=== PATIENT | male | born 1955 | race Caucasian/White ===

== ENCOUNTER → 2019-01-20 11:28 | Outpatient (CLI) | payer BC, SELFPAY ==
[2019-01-20 12:24] LABS: Anion Gap 11.4 mEq/L (5-15); Blood Urea Nitrogen 16 mg/dL (7-18); Calcium 9.1 mg/dL (8.5-10.1); Carbon Dioxide 28 mmol/L (21.0-32.0); Chloride 107 mmol/L (98-107); Creatinine,Serum 0.98 mg/dL (0.70-1.30); Estimated Glomerular Filt Rate 78 ml/min (>60); GFR (African American) 94 ML/MIN (>60); Glucose 103 mg/dL (74-106); Potassium 4.4 mmoL/L (3.5-5.1); Sodium 142 mmol/L (136-145)
[2019-01-20 12:59] LABS: Basophils # 0.1 K/mm3 (0-0.2); Basophils % 0.8 % (0.1-2.0); Eosinophils # 0.2 K/mm3 (0.0-0.4); Eosinophils % 2.4 % (0.1-12.0); Hemoglobin 16.4 g/dL (14.1-18.0); Lymphocytes # 2.6 K/mm3 (0.7-4.5); Lymphocytes % 37.3 % (10-50); Mean Corpuscular HGB Conc 33.5 g/dL (31.8-35.4); Mean Corpuscular Hemoglobin 30.8 pg (27.0-31.2); Mean Corpuscular Volume 92.1 fl (80-94); Mean Platelet Volume 8.5 fl (7.4-10.4); Monocytes # 0.6 K/mm3 (0.1-1.0); Monocytes % 8.2 % (1.7-9.3); Neutrophils # 3.6 K/mm3 (1.8-7.8); Neutrophils % 51.3 % (37.0-80.0); Platelet Count 204 K/mm3 (142-424); Red Blood Count 5.32 M/mm3 (4.60-6.20); Red Cell Distribution Width 13.6 % (11.5-17.5)
== END ==
PROVIDERS: Visit Provider Otolaryngology
DX: Z01.818 Encounter for other preprocedural examination (principal); L72.0 Epidermal cyst
CPT/HCPCS: 36415; 80048; 85025; 93005

== ENCOUNTER 2023-02-21 20:07 | Emergency (ER) | payer MEDICARE, SELFPAY ==
[2023-02-21 20:19] VITALS: BP 176/92; PULSE 102; RESP 18; TEMP 37.1; O2SAT 98; BMI 36.5
[2023-02-21 20:27] VITALS: BP 176/92; BP 192/96; PULSE 102; PULSE 94
--- NOTE | 2023-02-21 20:30 | CT_ITS ---
PROCEDURE INFORMATION: Exam: CT Abdomen And Pelvis With Contrast Exam date and time: 02/21/2023 8:51 PM Age: 67 years old Clinical indication: Other: Gi bleed TECHNIQUE: Imaging protocol: Computed tomography of the abdomen and pelvis with contrast. Radiation optimization: All CT scans at this facility use at least one of these dose optimization techniques: automated exposure control; mA and/or kV adjustment per patient size (includes targeted exams where dose is matched to clinical indication); or iterative reconstruction. Contrast material: ISOVUE; Contrast volume: 75 ml; Contrast route: IV; REPORTING DATA: Count of CT and Cardiac NM exams in prior 12 months: This patient has received 0 known CTs and 0 known cardiac nuclear medicine studies in the 12 months prior to the current study. COMPARISON: CR CXR2 CHEST-AP VIEW ONLY 02/15/2017 4:52 AM FINDINGS: Lungs: Calcified granuloma in the left lower lobe. Heart: Aortic valve leaflet calcifications which can be associated with aortic valve stenosis. Coronary arteries: Mild-moderate coronary artery calcifications. Liver: Unremarkable. Gallbladder and bile ducts: Unremarkable. Pancreas: Unremarkable. Spleen: Punctate calcified granuloma in the spleen. Adrenal glands: Unremarkable. Kidneys and ureters: Unremarkable. No hydronephrosis. Stomach and bowel: Sigmoid diverticulosis without evidence of acute diverticulitis. Appendix: No evidence of appendicitis. Intraperitoneal space: No free fluid. No pneumoperitoneum.. Vasculature: Mild atherosclerotic disease in the abdomen and pelvis. Lymph nodes: Unremarkable. Urinary bladder: Unremarkable as visualized. Reproductive: Unremarkable as visualized. Bones/joints: Intervertebral hemangioma at L1. Chronic morphology multilevel height loss in the thoracolumbar spine. No acute fracture. Soft tissues: Unremarkable. IMPRESSION: 1. No acute findings in the abdomen and pelvis. 2. Sigmoid diverticulosis without evidence of acute diverticulitis.
[2023-02-21 20:37] LABS: Basophils % 0.4 % (0.1-2.0); Eosinophils # 0.1 K/mm3 (0.0-0.4); Eosinophils % 1.5 % (0.1-12.0); Hematocrit 40.6 % (42.0-52.0); Hemoglobin 13.6 g/dL (14.1-18.0); Lymphocytes # 2.8 K/mm3 (0.7-4.5); Lymphocytes % 31.1 % (10-50); Mean Corpuscular HGB Conc 33.5 g/dL (31.8-35.4); Mean Corpuscular Hemoglobin 31.2 pg (27.0-31.2); Mean Platelet Volume 9.2 fl (7.4-10.4); Monocytes # 0.5 K/mm3 (0.1-1.0); Monocytes % 5.6 % (1.7-9.3); Neutrophils # 5.6 K/mm3 (1.8-7.8); Neutrophils % 61.5 % (37.0-80.0); Platelet Count 230 K/mm3 (142-424); Red Blood Count 4.36 M/mm3 (4.60-6.20); Red Cell Distribution Width 14.1 % (11.5-17.5); White Blood Count 9.1 K/mm3 (4.8-10.8)
[2023-02-21 20:38] LABS: Chloride 103 mmol/L (98-107); Potassium 4.2 mmoL/L (3.5-5.1); Sodium 137 mmol/L (136-145)
[2023-02-21 20:40] VITALS: BP 161/97; PULSE 89; RESP 16; O2SAT 98
--- NOTE | 2023-02-21 20:40 | HMH.EDGIBL ---
Discharge Plan Disposition Patient Disposition: Home, Self-Care Chief Complaint: GI Bleed Prescriptions Prescriptions: No Action amlodipine 5 mg tablet 5 mg PO DAILY levothyroxine 75 mcg capsule 75 mcg PO DAILY omeprazole 40 mg capsule,delayed release(DR/EC) 40 mg PO DAILY Referrals Follow up/Referrals: Carlos Sharp MD [Primary Care Provider] - See instructions Clinical Impressions Clinical Impression: Acute GI bleeding, Syncope Instructions Patient Instructions: DI for Gastrointestinal Bleeding Discharge ED Provider: Angelito (ED)Rad GI Bleed HPI General Chief complaint: GI Bleed Stated complaint: pOSSIBLE GI BLEED Time Seen by Provider: 02/21/23 20:35 Mode of Arrival: Family Vehicle Source of Information: Patient, Spouse and Medical Record Limitations: No Limitations Description of Symptoms (Recalled from ER Triage Doc. by RN): 67 YO MALE CC OF RECTAL BLEEDING . PATIENT REVEALS HE HAS HAD 4-5 TARRY BLACK STOOLS OF SOFT CONSISTENCY THROUGHOUT DAY TODAY,AND 'MADE HIM COME' FOLLOWING A SYNCOPAL EPISODE AT HOME. PT STATES HE HAD WALKED INTO THE KITCHEN, FELT WEAK IN THE LEGS AND IMMEDIATEDLY 'COLLAPSED' DOWN ONTO HIS BUTTOCKS. REPORTS THIS WAS WITNESSED AND HE DIDN'T HIT HIS HEAD. LOC LASTED APPROX 2-3 SECONDS. DENIES ANY INJURY FROM SYNCOPAL EPISODE. FURTHER STATES HE HAS BEEN LIGHTHEADED INTERMITTENTLY. PATIENT IS ALERT, VERBALLY RESPONSIVE WITH CLEAR SPEECH AND NO HISTORY OF SEIZURE ACTIVITY. PMH: HTN,HYPOTHYROID, AND GERD ASSOCIATED ULCERS. DENIES ANTICOAGULANTS/ANTIPLATELET USE. RECENTLY WAS SEEN BY DR SHARP AND HAD BLOOD WORK COMPLETED. SOCIALLY DRINKS ON WEEKENDS, HOWEVER FORMER ETOH HISTORY INCLUDED DAILY DRINKING FOR APPROX 20 YEARS. DENIES TOBACCO/RECR DRUG USE. History of Present Illness HPI Narrative: dark rectal bleeding which started today and had acute syncopal episode assoc with tonight no abd pain complaint: melena Onset (ago): hour(s) Consistency: intermittent Severity: moderate Context: history of GI bleed Associated symptoms: syncope Treatments Prior to Arrival: none Related Data Home Medications Medication Instructions Recorded Confirmed amlodipine 5 mg tablet 5 mg PO DAILY Hypertension 01/20/19 02/21/23 levothyroxine 75 mcg capsule 75 mcg PO DAILY High blood pressure 01/20/19 02/21/23 omeprazole 40 mg capsule,delayed 40 mg PO DAILY reflux 01/20/19 02/21/23 release Allergies Allergy/AdvReac Type Severity Reaction Status Date / Time No Known Allergies Allergy Verified 09/22/19 13:55 [facility] Disclaimer: The information contained in this section may have been updated after the patient was seen, as this information can be updated by other users. Social History Smoking Status: Never smoker alcohol intake: never substance use type: denies use current occupational status: employed Travel in the last 8 weeks: None household members: significant other housing: house current occupation: [employer] current occupational exposures/hazards: No caffeine: Yes ROS Obtained: Yes All systems reviewed & no additional complaints except as documented Physical Exam General General appearance: alert Head Head exam: normocephalic Eye Eye exam: Present PERRL and EOMI; Absent scleral icterus ENT ENT exam: Present mucous membranes moist Neck Neck exam: Present trachea midline Respiratory Respiratory exam: Absent respiratory distress Cardiovascular Cardiovascular exam: Present regular rate and systolic murmur Abdominal Exam Abdominal exam: Present soft; Absent tenderness, guarding or rebound Rectal Exam Rectal exam: Present heme (+) stool and prostate enlargement Extremities Exam Extremities exam: Present full ROM Neurological Exam Neurological exam: Present alert and CN II-XII intact; Absent motor sensory deficit Psychiatric Psychiatric exam: Present normal affect Skin Skin exam: Absent rash Medical Decision Shaji
[2023-02-21 20:41] LABS: Alanine Aminotransferase 24 U/L (12-78); Amylase 59 U/L (30-110); Anion Gap 11.2 mEq/L (5-15); Aspartate Amino Transferase 26 U/L (17-59); Bilirubin,Unconjugated 0.3 mg/dL (0.0-1.1); Blood Urea Nitrogen 26 mg/dl (9-20); Calcium 8.7 mg/dl (8.4-10.2); Carbon Dioxide 27 mmol/L (22.0-30.0); Creatinine Clearance Estimated 113 mL/min (50-200); Estimated Glomerular Filt Rate 85 ml/min (>60); GFR (African American) 102 ML/MIN (>60); Glucose 123 mg/dl (74-100)
[2023-02-21 20:42] LABS: Alkaline Phosphatase 75 U/L (38-126); Bilirubin,Direct 0.1 mg/dl (0.0-0.4); Bilirubin,Indirect 0.3 mg/dL (0.0-0.9); Bilirubin,Total 0.4 mg/dl (0.2-1.3); Lipase 64 U/L (23-300); Total Protein,Serum 6.6 g/dl (6.3-8.2)
[2023-02-21 20:42] LABS: Occult Blood,Stool Positive (Negative)
[2023-02-21 20:44] LABS: Activated Partial Thrombo Time 30.4 seconds (22.8-30.6); INR 0.98 (0.9-1.1); Prothrombin Time 10.6 seconds (10.1-12.5)
[2023-02-21 20:48] LABS: C-Reactive Protein 3.6 mg/L (0-4)
[2023-02-21 21:05] LABS: Erythrocyte Sedimentation Rate 12 mm/hr (0-20)
[2023-02-21 21:06] VITALS: BP 164/86; PULSE 90; O2SAT 99
[2023-02-21 21:30] VITALS: BP 154/86; PULSE 89; O2SAT 98
--- NOTE | 2023-02-21 22:00 | PC.NURSE ---
PATIENT HOOKED UP FOR VITAL SIGNS, CALL LIGHT WITHIN REACH, SPOUSE AT BEDSIDE
[2023-02-21 23:03] VITALS: BP 168/97; PULSE 78; RESP 19; TEMP 36.7; O2SAT 98
== END 2023-02-21 23:15 | disposition home or self-care (01) ==
PROVIDERS: Emergency Provider Emergency Medicine; PCP Family Medicine
DX: K92.2 Gastrointestinal hemorrhage, unspecified (principal); R55 Syncope and collapse
CPT/HCPCS: 74177; 80048; 80076; 82150; 82272; 83690; 85025; 85610; 85651; 85730; 86140; 96360; 99284; 99285; G0328; Q9967

== ENCOUNTER 2023-02-23 08:02 | Observation (INO) | payer MEDICARE, SELFPAY ==
[2023-02-23] VITALS (24 sets, daily range): BP systolic 103–150; BP diastolic 53–97; PULSE 72–95; RESP 14–19; TEMP 36.4–36.9; O2SAT 93–100; BMI 35.7; BMI 37.2
[2023-02-23 08:22] LABS: Basophils % 0.4 % (0.1-2.0); Eosinophils # 0.1 K/mm3 (0.0-0.4); Eosinophils % 1.7 % (0.1-12.0); Hematocrit 27.6 % (42.0-52.0); Hemoglobin 9.3 g/dL (14.1-18.0); Lymphocytes # 2.9 K/mm3 (0.7-4.5); Lymphocytes % 38.1 % (10-50); Mean Corpuscular HGB Conc 33.8 g/dL (31.8-35.4); Mean Corpuscular Hemoglobin 32.1 pg (27.0-31.2); Mean Corpuscular Volume 95.1 fl (80-94); Mean Platelet Volume 9.3 fl (7.4-10.4); Monocytes # 0.3 K/mm3 (0.1-1.0); Monocytes % 4.5 % (1.7-9.3); Neutrophils # 4.2 K/mm3 (1.8-7.8); Neutrophils % 55.3 % (37.0-80.0); Platelet Count 221 K/mm3 (142-424); Red Blood Count 2.91 M/mm3 (4.60-6.20); Red Cell Distribution Width 14.3 % (11.5-17.5); White Blood Count 7.7 K/mm3 (4.8-10.8)
--- NOTE | 2023-02-23 08:26 | PC.NURSE ---
calling dr wilkins office to speak to carlos a caruso
--- NOTE | 2023-02-23 08:29 | ECG_ITS ---
APPROVED REPORT Exam: Resting ECG HR:77 bpm ECG Measurements Heart Rate 77 AXES KS 178 P 13 QRSd 126 QRS 16 QT 410 T 33 QTc 441 Conclusion SINUS RHYTHM POSSIBLE RIGHT VENTRICULAR CONDUCTION DELAY [RSR (QR) IN V1/V2] PROBABLE LATERAL MYOCARDIAL INFARCTION , PROBABLY OLD [35 ms Q WAVE IN I/aVL/V5/V6] ABNORMAL ECG UNCONFIRMED REPORT Electronically signed by : Magan Mckeon MD 02/23/2023 19:36:45
--- NOTE | 2023-02-23 08:31 | PC.NURSE ---
Jamari Rm speaking with dr rojas
--- NOTE | 2023-02-23 08:32 | PC.NURSE ---
ROSANNE TAYLOR speaking with Dr. Sharp
--- NOTE | 2023-02-23 08:40 | PC.NURSE ---
pt given additional warm blanket, family at BS, states no additional needs at this time
[2023-02-23 08:42] LABS: Chloride 105 mmol/L (98-107); Potassium 3.7 mmoL/L (3.5-5.1); Sodium 136 mmol/L (136-145)
[2023-02-23 08:45] LABS: Alanine Aminotransferase 28 U/L (12-78); Albumin Level 3.1 g/dl (3.5-5.0); Albumin/Globulin Ratio 1.3 (1.1-1.8); Alkaline Phosphatase 59 U/L (38-126); Anion Gap 9.7 mEq/L (5-15); Aspartate Amino Transferase 31 U/L (17-59); Bilirubin,Total 0.5 mg/dl (0.2-1.3); Blood Urea Nitrogen 27 mg/dl (9-20); Calcium 8.1 mg/dl (8.4-10.2); Carbon Dioxide 25 mmol/L (22.0-30.0); Creatinine Clearance Estimated 111 mL/min (50-200); Estimated Glomerular Filt Rate 75 ml/min (>60); GFR (African American) 91 ML/MIN (>60); Globulin 2.3 g/dL (1.3-3.2); Glucose 169 mg/dl (74-100); Total Protein,Serum 5.4 g/dl (6.3-8.2)
--- NOTE | 2023-02-23 08:46 | PC.NURSE ---
notified care management of admission
--- NOTE | 2023-02-23 08:47 | HMH.EDGENADL ---
Discharge Plan Disposition Patient Disposition: Admitted As Inpatient Chief Complaint: GI Bleed Prescriptions Prescriptions: No Action amlodipine 5 mg tablet 5 mg PO DAILY levothyroxine 75 mcg capsule 75 mcg PO DAILY omeprazole 40 mg capsule,delayed release(DR/EC) 40 mg PO DAILY Referrals Follow up/Referrals: Carlos Sharp MD [Primary Care Provider] - See instructions Clinical Impressions Clinical Impression: Syncope, Acute GI bleeding Instructions Patient Instructions: DI for Gastrointestinal Bleeding Discharge ED Provider: Stuart Palm General Adult HPI General Chief complaint: GI Bleed Stated complaint: Gi Bleed Time Seen by Provider: 02/23/23 08:05 Mode of Arrival: EMS Source of Information: Patient Limitations: No Limitations Description of Symptoms (Recalled from ER Triage Doc. by RN): pt to ed via ems c/o rectal bleeding. pt states he was seen wednesday evening for the same complaint and was d/c home to see dr borden this morning. pt states he got up to use the bathroom this morning, had significant blood loss and had a syncopal episode. pt c/o generalized weakness. History of Present Illness HPI narrative: 67-year-old male presents with rectal bleeding. He was evaluated a few days ago for the same complaint and had a hemoglobin of 13 at that time was set up to see Dr. Borden this morning. This morning he woke up to use the bathroom and had bleeding per rectum and passed out as well. He has no abdominal pain or chest pain headache. No fever or chills he does not take blood thinners. Bleeding was bright red. Related Data Home Medications Medication Instructions Recorded Confirmed amlodipine 5 mg tablet 5 mg PO DAILY Hypertension 01/20/19 02/21/23 levothyroxine 75 mcg capsule 75 mcg PO DAILY High blood pressure 01/20/19 02/21/23 omeprazole 40 mg capsule,delayed 40 mg PO DAILY reflux 01/20/19 02/21/23 release Allergies Allergy/AdvReac Type Severity Reaction Status Date / Time No Known Allergies Allergy Verified 09/22/19 13:[address] [facility] Disclaimer: The information contained in this section may have been updated after the patient was seen, as this information can be updated by other users. Social History Smoking Status: Never smoker alcohol intake: never substance use type: denies use current occupational status: employed Travel in the last 8 weeks: None household members: significant other housing: house current occupation: [employer] current occupational exposures/hazards: No caffeine: Yes ROS Obtained: Yes All systems reviewed & no additional complaints except as documented Constitutional Constitutional: Reports fatigue ENT Ears, Nose, Mouth, and Throat: Denies dry mouth Cardiovascular Cardiovascular: Denies dyspnea Respiratory Respiratory: Denies dyspnea Genitourinary Male Genitourinary: Denies flank pain Musculoskeletal Musculoskeletal: Denies joint swelling Neurologic Neurologic: Denies confusion Endocrine Endocrine: Reports fatigue Allergic/Immunologic Allergic/Immunologic: Denies urticaria Physical Exam General General appearance: alert and in no apparent distress Eye Eye exam: Present PERRL and EOMI ENT ENT exam: Present normal exam and normal oropharynx Neck Neck exam: Present normal inspection Chest Chest inspection: Present symmetric chest wall rise Respiratory Respiratory exam: Present normal lung sounds bilaterally; Absent respiratory distress Cardiovascular Cardiovascular exam: Present regular rate and normal rhythm Abdominal Exam Abdominal exam: Present soft; Absent distention, tenderness, guarding, rebound, Short's sign or tenderness at McBur[place]'s Point Rectal Exam Rectal exam: Present deferred Back Exam Back exam: Present normal inspection Neurological Exam Neurological exam: Present alert and oriented X3 Psychiatric Psychiatric exam: Present normal affect and normal mood Skin Skin exam: Present warm,
[2023-02-23 08:48] LABS: Coronavirus 19, PCR Not Detected (NotDetected); Influenza A, PCR Not Detected (NotDetected); Influenza B, PCR Not Detected (NotDetected)
--- NOTE | 2023-02-23 08:52 | EXP.SURG.CON ---
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 I had performed colonoscopy on him in 2015 and he had a couple of tubular adenomas. Follow-up colonoscopy in October 2019 revealed a single tubular adenoma and several hyperplastic polyps as well as some pandiverticulosis. He was seen in the emergency department on 02/21/2023 with complaints of passage of several tarry black stools along with a reported syncopal episode. At that time he was found to have a BUN of 26 with a creatinine of 0.9. Hemoglobin of 13.6. CT scan of the abdomen pelvis at that time with IV contrast revealed no acute findings with sigmoid diverticulosis without diverticulitis. Patient was discharged to follow-up as an outpatient with surgery. He presents back to the emergency department this morning via EMS with complaints of rectal bleeding . He had some blood loss described as black stool with a bit of fresher looking blood and had a syncopal episode. Hemoglobin is 9.3 with hematocrit of 27.6%. His BUN is 27 with a creatinine of 1.0 PFSH [facility] Disclaimer: The information contained in this section may have been updated after the patient was seen, as this information can be updated by other users. Medical History (Updated 02/23/23 @ 10:55 by Mary Walton RN) Abnormal colonoscopy Abnormal colonoscopy Colon polyps Esophageal anastomotic leak GERD (gastroesophageal reflux disease) GI bleed Thyroid disease Tinnitus Family History Coronary artery disease Cancer Hypertension Social History (Updated 02/23/23 @ 10:57 by Mary Walton RN) Smoking Status: Never smoker alcohol intake: current substance use type: denies use current occupational status: employed and retired Travel in the last 8 weeks: [place] the [place] household members: significant other housing: house current occupation: [employer] current occupational exposures/hazards: No caffeine: Yes Review of Systems *Neurologic Neurologic: Denies confusion Psychiatric Psychiatric: Denies confusion Meds Home Medications and Allergies Home Medications Medication Instructions Recorded Confirmed Type amlodipine 5 mg tablet 5 mg PO DAILY High blood pressure 01/20/19 02/23/23 History levothyroxine 75 mcg capsule 75 mcg PO DAILY Thyroid 01/20/19 02/23/23 History omeprazole 40 mg capsule,delayed 40 mg PO DAILY Acid reflux 01/20/19 02/23/23 History release multivitamin 1 tab PO DAILY Supplement 02/23/23 02/23/23 History New Prescriptions to Start Prescriptions: Allergies Allergy/AdvReac Type Severity Reaction Status Date / Time No Known Allergies Allergy Verified 09/22/19 13:55 Exam (Inpt) Vital signs and Labs for Last 24 Hours: Temp Pulse Resp BP Pulse Ox 98.3 F 76 14 124/92 H 100 02/23/23 08:05 02/23/23 08:31 02/23/23 08:07 02/23/23 08:31 02/23/23 08:31 Laboratory Results - last 24 hr 02/23/23 08:06: WBC 7.7, RBC 2.91 L D, Hgb 9.3 L, Hct 27.6 L, MCV 95.1 H, MCH 32.1 H, MCHC 33.8, RDW 14.3, Plt Count 221, MPV 9.3, Neut % (Auto) 55.3, Lymph % (Auto) 38.1, [place] % (Auto) 4.5, Eos % (Auto) 1.7, Baso % (Auto) 0.4, Neut # (Auto) 4.2, Lymph # (Auto) 2.9, [place] # (Auto) 0.3, Eos # (Auto) 0.1, Baso # (Auto) 0.0 02/23/23 08:06: Sodium 136, Potassium 3.7, Chloride 105, Carbon Dioxide 25, Anion Gap 9.7, BUN 27 H, Creatinine 1.00, Estimated Creat Clear 111, Estimated GFR 75, Est GFR ( Amer) 91, Glucose 169 H, Calcium 8.1 L, Total Bilirubin 0.5, AST 31, ALT 28, Alkaline Phosphatase 59, Total Protein 5.4 L, Albumin 3.1 L D, Globulin 2.3, Albumin/Globulin Ratio 1.3 I & O for Labs for Last 24 Hours: Intake & Output 02/20/23 02/21/23 02/22/23 02/23/23 11:59 11:59 11:59 11:59 Weight 235 lb C
--- NOTE | 2023-02-23 09:00 | PC.NURSE ---
dr okeefe speaking to carlos a caruso
--- NOTE | 2023-02-23 09:04 | PC.NURSE ---
dena yanezn at BS
--- NOTE | 2023-02-23 09:08 | PC.NURSE ---
Addendum entered by Vielka Campos RN 02/23/23 12:07: Elaine lopez RN* Original Note: report called to elaine molina rn
--- NOTE | 2023-02-23 09:08 | PC.NURSE ---
nereida bone @ bs
[2023-02-23 09:18] LABS: Troponin I < 0.01 ng/ml (0.00-0.034)
--- NOTE | 2023-02-23 09:21 | EXP.HP ---
History of Present Illness *Admission Date: 02/23/23 *History of present illness: Mr. Hernando Villagomez is a 67-year-old male with a history of hypertension, hypothyroidism, colon polyps, previous GI bleed in 2017, and hyperlipidemia, who presented to [facility] emergency room via EMS after rectal bleeding on the commode and syncopal episode This a.m. Significant other is with him and states he was in and out Of consciousness after falling off the commode and until EMS arrived. He describes black stools for the last 3 to 4 days and was actually seen in the emergency room with evaluation 2 days ago. At that time hemoglobin was [address] of the abdomen/pelvis was unremarkable. He has been eating and drinking as usual. He denies any abdominal pain, nausea, or vomiting. He does not take aspirin and states that he has not been taking NSAIDs. He does not use tobacco. He does drink beer on an irregular basis anywhere from 6-8 beers at a time. He was evaluated in the emergency room and will be admitted with consultation with surgeon, Dr. Borden. At this time he is feeling better but when sitting up for chest assessment he became dizzy. He continues to deny abdominal pain, nausea, and no vomiting. He has not had a stool since arrival to the ER. 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 I had performed colonoscopy on him in 2015 and he had a couple of tubular adenomas. Follow-up colonoscopy in October 2019 revealed a single tubular adenoma and several hyperplastic polyps as well as some pandiverticulosis. He was seen in the emergency department on 02/21/2023 with complaints of passage of several tarry black stools along with a reported syncopal episode. At that time he was found to have a BUN of 26 with a creatinine of 0.9. Hemoglobin of 13.6. CT scan of the abdomen pelvis at that time with IV contrast revealed no acute findings with sigmoid diverticulosis without diverticulitis. Patient was discharged to follow-up as an outpatient with surgery. He presents back to the emergency department this morning via EMS with complaints of rectal bleeding . He had some blood loss and had a syncopal episode. He describes appearance of blood as fresh red. Hemoglobin is 9.3 with hematocrit of 27.6%. His BUN is 27 with a creatinine of 1.0 The above as per Dr. Borden [facility] Disclaimer: The information contained in this section may have been updated after the patient was seen, as this information can be updated by other users. Medical History (Updated 02/23/23 @ 10:55 by Mary Walton RN) Abnormal colonoscopy Abnormal colonoscopy Colon polyps Esophageal anastomotic leak GERD (gastroesophageal reflux disease) GI bleed Thyroid disease Tinnitus Family History Coronary artery disease Cancer Hypertension Social History (Updated 02/23/23 @ 10:57 by Mary Walton RN) Smoking Status: Never smoker alcohol intake: current substance use type: denies use current occupational status: employed and retired Travel in the last 8 weeks: [place] the [place] household members: significant other housing: house current occupation: [employer] current occupational exposures/hazards: No caffeine: Yes Review of Systems Constitutional Constitutional: Denies fever(s) and Denies frequent falls Eyes Eyes: Reports spots in vision ENT Ears, Nose, Mouth, and Throat: Reports dizziness, Denies otalgia and Denies sore throat *Cardiovascular Cardiovascular: Reports dyspnea, Denies irregular heart rhythm, Denies leg edema, Denies palpitations and Reports syncope *Respiratory Respiratory: Denies chest congestion, Denies cough, Reports dyspnea and Denies hemoptysis *Gastrointestinal Gastrointestinal: Denies abdominal pain, Reports change in bowel habits, Reports change in stool character, Denies coffe
--- NOTE | 2023-02-23 09:27 | PC.NURSE ---
attempted to call report, receiving nurse unavailable, waiting on a call back
--- NOTE | 2023-02-23 09:40 | PC.NURSE ---
notified second floor staff pt covid swab is negative
--- NOTE | 2023-02-23 10:01 | PC.NURSE ---
deyanira montejoing on pt
--- NOTE | 2023-02-23 11:18 | HMH.PHAINT1 ---
Pharmacy Intervention Comments: Reconciled patient's home medications using patient interview.
--- NOTE | 2023-02-23 12:13 | EXP.ANES.CKL ---
[facility] Disclaimer: The information contained in this section may have been updated after the patient was seen, as this information can be updated by other users. Medical History (Updated 02/23/23 @ 10:55 by Mary Walton RN) Abnormal colonoscopy Abnormal colonoscopy Colon polyps Esophageal anastomotic leak GERD (gastroesophageal reflux disease) GI bleed Thyroid disease Tinnitus Family History Other Cancer Coronary artery disease Hypertension Social History (Updated 02/23/23 @ 10:57 by Mary Walton RN) Smoking Status: Never smoker alcohol intake: current substance use type: denies use current occupational status: employed and retired Travel in the last 8 weeks: [place] the [place] household members: significant other housing: house current occupation: [employer] current occupational exposures/hazards: No caffeine: Yes [facility] Anesthesia Checklist Patient Identification Patient Identification: Arm Band and Verbal (Name & ) Structural Data Admitted From: Inpatient Planned Operative Procedure/s: EGD Consent for Planned Operative Procedure(s) Verified: Yes Verified Documents: Surgical Consent NPO Status Verified Time NPO: 00:00 Chart Verification Results Verified: CBC and BMP Additional verifications Anesthesia Reactions: No Hx Blood Transfusions: No Blood Transfusion Reaction: No Airway Assessment C-Spine Mobility Assessed: Yes TMJ Mobility Assessed: Yes Dentition: Good Dentition Neurological Assessment Level of Consciousness: Awake, Alert and Appropriate Anesthesia Plan Anesthesia Risk discussed: Yes ASA Class: II Anesthesia Type: MAC
[2023-02-23 12:16] LABS: Troponin I < 0.01 ng/ml (0.00-0.034)
--- NOTE | 2023-02-23 12:30 | P.PCN_ITS ---
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 I had performed colonoscopy on him in 2015 and he had a couple of tubular adenomas.? Follow-up colonoscopy in October 2019 revealed a single tubular adenoma and several hyperplastic polyps as well as some pandiverticulosis.? He was seen in the emergency department on 02/21/2023 with complaints of passage of several tarry black stools along with a reported syncopal episode.? At that time he was found to have a BUN of 26 with a creatinine of 0.9.? Hemoglobin of 13.6.? CT scan of the abdomen pelvis at that time with IV contrast revealed no acute findings with sigmoid diverticulosis without diverticulitis.? Patient was discharged to follow-up as an outpatient with surgery.? He presents back to the emergency department this morning via EMS with complaints of rectal bleeding .? He had some blood loss described as black stool with a bit of fresher looking blood and had a syncopal episode.? Hemoglobin is 9.3 with hematocrit of 27.6%.? His BUN is 27 with a creatinine of 1.0. He is on omeprazole. Performing Provider:: Onur Borden MD Referring Provider:: Carlos Sharp MD Sedation:: MAC sedation Procedure:: Patient was taken to endoscopy procedure room. He was positioned in lateral decubitus position. Adequate intravenous sedation was achieved with anesthesia titration of propofol. Olympus endoscope was inserted via the oropharynx. Esophagus was cannulated. Esophagus appeared normal. Gastroesophageal junction was encountered at 40 cm from the incisors. Stomach was cannulated and insufflated. Retroflexion revealed no evidence of any hiatal hernia. There was some minor diffuse gastropathy. Pylorus was traversed. Within the duodenum there was some minor duodenitis. This was carefully inspected. There was no evidence of any recent stigmata of bleeding. The endoscope was advanced a generous distance into the duodenum. There appeared to be no evidence of any recent bleeding. The endoscope was withdrawn. Findings:: Gastroesophageal junction at 40 cm Minor diffuse gastropathy Nonerosive duodenitis No evidence of upper GI bleeding or stigmata of recent bleeding Recommendations:: Unclear as to the etiology of the patient's blood loss. No clear source identified during this endoscopy for upper GI etiology. Given the clinical s cenario nature of the patient's symptoms unlikely colon source. Would not pursue colonoscopy immediately as inpatient. Continue to monitor hemoglobin for stability and transfuse as necessary. Likely tentatively plan for small bowel evaluation beginning with small bowel follow-through. Complications:: None immediately apparent Estimated blood obtained (mL): 0
--- NOTE | 2023-02-23 12:39 | CT_ITS ---
FINAL REPORT TECHNIQUE: Axial CT images were obtained from the lung bases to the pubic symphysis before and following IV contrast administration in multiple phases. Reformatted images were reconstructed from the axial dataset provided for interpretation.This study was performed with techniques to keep radiation doses as low as reasonably achievable (ALARA). Individualized dose reduction techniques using automated exposure control or adjustment of mA and/or kV according to the patient's size were employed. CLINICAL HISTORY: GI BLOOD LOSS COMPARISON: CT abdomen and pelvis dated 02/22/2023 FINDINGS: CTA ABDOMEN AND PELVIS Motion on many of the images significantly decreases the sensitivity of the exam. LOWER CHEST: The heart is normal in size. The lung bases are clear. ABDOMEN: Liver, gallbladder and bile ducts: The liver enhances homogeneously without suspicious focal hepatic lesion.. Unremarkable gallbladder. No biliary ductal dilatation. Adrenal glands: The adrenal glands are morphologically unremarkable without suspicious lesion. Kidneys, ureters, prostate: No suspicious renal stones. No nephrolithiasis. No hydronephrosis. The prostate is enlarged. Spleen: The spleen is normal in size. Pancreas: The pancreas is unremarkable. Gastrointestinal system and mesentery: There is no evidence of bowel obstruction. There is sigmoid diverticulosis. The appendix is visualized and unremarkable. There is no significant mesenteric inflammation. Lymph nodes: No pathologically enlarged abdominal lymph nodes are present. Vessels: There is no evidence of abdominal aortic aneurysm or dissection. Moderate vascular calcifications are noted. There is mild stenosis in the proximal celiac axis and superior mesenteric artery of less than 50%. There is mild, less than 50% stenosis of the proximal right renal artery. The MANUELA is patent. There is no CT evidence of acute GI hemorrhage. Peritoneum: No free intraperitoneal fluid or pneumoperitoneum. Body wall: No body wall contusion. There is a small left inguinal hernia containing fat. Bones: Multilevel chronic thoracic and lumbar compression fractures. IMPRESSION: No CT evidence of acute GI hemorrhage. Mild, less than 50% stenosis of the proximal celiac axis and SMA. Mild, less than 50% stenosis of the right renal artery. Reviewed, Interpreted and Dictated by Onur Desai III, MD Transcribed by Virginia Adair Authenticated and [facility]
--- NOTE | 2023-02-23 12:47 | SUR.PHASEII ---
CALLED REPORT TO DAISY DOWNS RN
[2023-02-23 15:19] LABS: Troponin I 0.01 ng/ml (0.00-0.034)
[2023-02-23 16:17] LABS: Occult Blood,Stool Positive (Negative)
--- NOTE | 2023-02-23 17:55 | PC.NURSE ---
Pt is resting in bed. No complaints of discomfort at this time. Pt had one small loose stool. Specimen sent. VSS at this time. Tolerated clear diet. call light within reach.
[2023-02-24] VITALS (10 sets, daily range): BP systolic 117–160; BP diastolic 52–91; PULSE 63–91; RESP 18; TEMP 36.6–36.9; O2SAT 92–98; BMI 36.1
--- NOTE | 2023-02-24 05:34 | PC.NURSE ---
NO ACUTE CHANGES SINCE PREVIOUS ASSESSMENT. PT RESTED WELL. NO C/O ABD PAIN OR BLOODY STOOLS. NO C/O NAUSEA OR VOMITING. VSS. NSR ON TELE.
[2023-02-24 06:20] LABS: Basophils % 0.5 % (0.1-2.0); Eosinophils # 0.2 K/mm3 (0.0-0.4); Eosinophils % 1.9 % (0.1-12.0); Hematocrit 25.2 % (42.0-52.0); Hemoglobin 8.6 g/dL (14.1-18.0); Lymphocytes # 2.3 K/mm3 (0.7-4.5); Lymphocytes % 25.8 % (10-50); Mean Corpuscular HGB Conc 34.1 g/dL (31.8-35.4); Mean Corpuscular Hemoglobin 32.9 pg (27.0-31.2); Mean Corpuscular Volume 96.4 fl (80-94); Mean Platelet Volume 8.6 fl (7.4-10.4); Monocytes # 0.6 K/mm3 (0.1-1.0); Monocytes % 6.2 % (1.7-9.3); Neutrophils # 5.8 K/mm3 (1.8-7.8); Neutrophils % 65.6 % (37.0-80.0); Platelet Count 214 K/mm3 (142-424); Red Blood Count 2.61 M/mm3 (4.60-6.20); Red Cell Distribution Width 14.9 % (11.5-17.5); White Blood Count 8.8 K/mm3 (4.8-10.8)
--- NOTE | 2023-02-24 06:23 | FL_ITS ---
FINAL REPORT CLINICAL HISTORY: gi bleed FINDINGS: UPPER GI WITH SBFT HISTORY: Anemia. PROCEDURE: The patient ingested barium. Spot and overhead films were obtained. Additional barium was administered for a SBFT. FINDINGS: The esophagus is normal. There is no hiatal hernia. There is moderate gastroesophageal reflux. Peristalsis is normal. The rugal fold pattern of the stomach is normal. There are prominent duodenal folds which may represent duodenitis. FLUOROSCOPY TIME: 1 minute IMPRESSION: 1. Moderate esophageal reflux. 2. Prominent duodenal folds may represent duodenitis. SBFT: The cell installer film is normal. There is no evidence of obstruction. The mucosal fold pattern is normal. The terminal ilium is normal. IMPRESSION: Normal SBFT. Films reviewed , interpreted and dictated by Dr. Desai Transcribed by Stephan Smith PA-C. Reviewed, Interpreted and Dictated by Onur Desai III, MD Transcribed by MIKAELA Sultana Authenticated and [facility]
[2023-02-24 06:32] LABS: Chloride 108 mmol/L (98-107)
[2023-02-24 06:33] LABS: Potassium 3.8 mmoL/L (3.5-5.1); Sodium 138 mmol/L (136-145)
[2023-02-24 06:35] LABS: Blood Urea Nitrogen 18 mg/dl (9-20); Creatinine Clearance Estimated 113 mL/min (50-200); Estimated Glomerular Filt Rate 85 ml/min (>60); GFR (African American) 102 ML/MIN (>60)
[2023-02-24 06:36] LABS: Anion Gap 7.8 mEq/L (5-15); Calcium 7.9 mg/dl (8.4-10.2); Carbon Dioxide 26 mmol/L (22.0-30.0); Glucose 96 mg/dl (74-100)
--- NOTE | 2023-02-24 07:39 | EXP.ACUTE.PN ---
Subjective *Date: 02/24/23 *Time: 08:24 Interval history: Patient had a good night. He did sleep some. He has been on clear liquids and tolerated well. He denies abdominal pain, nausea, or vomiting. He has had some stools which are black and red. He is voiding QS. He does walk to the bathroom without any dizziness but is lightheaded when first rising. Hemoglobin this morning is 8.6 with a hematocrit of 25.2. Renal function is normal. Potassium is normal today at 3.8. He had an EGD yesterday per Dr. Borden which revealed the following: Findings:: Gastroesophageal junction at 40 cm Minor diffuse gastropathy Nonerosive duodenitis No evidence of upper GI bleeding or stigmata of recent bleeding Recommendations:: Unclear as to the etiology of the patient's blood loss.? No clear source identified during this endoscopy for upper GI etiology.? Given the clinical scenario nature of the patient's symptoms unlikely colon source.? Would not pursue colonoscopy immediately as inpatient.? Continue to monitor hemoglobin for stability and transfuse as necessary.? Likely tentatively plan for small bowel evaluation beginning with small bowel follow-through He had a CTA of the abdominal and pelvis with the following findings: FINDINGS: CTA ABDOMEN AND PELVIS? Motion on many of the images significantly decreases the sensitivity of the exam.? LOWER CHEST: The heart is normal in size.? The lung bases are clear. ABDOMEN:? Liver, gallbladder and bile ducts: The liver enhances homogeneously without suspicious focal hepatic lesion.. Unremarkable gallbladder.? No biliary ductal dilatation. Adrenal glands: The adrenal glands are morphologically unremarkable without suspicious lesion.? Kidneys, ureters, prostate: No suspicious renal stones.? No nephrolithiasis.? No hydronephrosis.? The prostate is enlarged.? Spleen: The spleen is normal in size.? Pancreas: The pancreas is unremarkable. Gastrointestinal system and mesentery: There is no evidence of bowel obstruction.? There is sigmoid diverticulosis.? The appendix is visualized and unremarkable.? There is no significant mesenteric inflammation.? Lymph nodes: No pathologically enlarged abdominal lymph nodes are present. Vessels:? There is no evidence of abdominal aortic aneurysm or dissection.? Moderate vascular calcifications are noted.? 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 There is mild, less than 50% stenosis of the proximal right renal artery.? The MANUELA is patent.? There is no CT evidence of acute GI hemorrhage. Peritoneum: No free intraperitoneal fluid or pneumoperitoneum. Body wall: No body wall contusion.? There is a small left inguinal hernia containing fat.? Bones:? Multilevel chronic thoracic and lumbar compression fractures. IMPRESSION: No CT evidence of acute GI hemorrhage.? Mild, less than 50% stenosis of the proximal celiac axis and SMA.? Mild, less than 50% stenosis of the right renal artery. Medical Exam Vital signs and Labs for Last 24 Hours: Vital Signs Temp Pulse Pulse Resp BP BP Pulse Ox 02/24/23 04:00 98.0 F 63 18 133/74 96 02/24/23 04:00 80 02/24/23 00:00 80 02/24/23 00:00 98.2 F 90 18 154/74 H 96 02/23/23 20:00 97.9 F 95 H 18 150/91 H 97 02/23/23 20:00 90 02/23/23 16:22 80 02/23/23 17:00 98.0 F 94 H 16 140/76 99 02/23/23 16:09 97.9 F 89 15 143/74 H 98 02/23/23 15:39 98.0 F 90 16 129/79 100 02/23/23 14:30 98.2 F 86 15 133/68 100 02/23/23 14:00 98.1 F 84 15 140/78 100 02/23/23 13:45 98.1 F 86 15 145/74 H 100 02/23/23 13:30 97.9 F 84 15 137/77 100 02/23/23 13:15 97.9 F 87 16 132/92 H 100 02/23/23 13:00 97.8 F 83 16 137/84 98 02/23/23 12:50 98.4 F 81 18 150/93 H 98 02/23/23 12:00 90 02/23/23 12:41 98.4 F 84 18 119/76 98 02/23/23 12:31 98.4 F 83 16 145/97 H 93 L 02/23/23 11:
--- NOTE | 2023-02-24 08:39 | EXP.SURG.PN ---
Subjective Narrative: Patient feels well without significant complaints. He states that he passed some dark stool yesterday evening. Hemoglobin 8.6 down from 9.3. Upper endoscopy yesterday relatively unremarkable. Exam Data for Last 24 hours Vital signs and Labs for Last 24 Hours: Temp Pulse Resp BP Pulse Ox 98.4 F 89 18 160/87 H 97 02/24/23 08:00 02/24/23 08:00 02/24/23 08:00 02/24/23 08:00 02/24/23 08:00 Laboratory Results - last 24 hr 02/23/23 08:06: Sodium 136, Potassium 3.7, Chloride 105, Carbon Dioxide 25, Anion Gap 9.7, BUN 27 H, Creatinine 1.00, Estimated Creat Clear 111, Estimated GFR 75, Est GFR ( Amer) 91, Glucose 169 H, Calcium 8.1 L, Total Bilirubin 0.5, AST 31, ALT 28, Alkaline Phosphatase 59, Troponin I < 0.01, Total Protein 5.4 L, Albumin 3.1 L D, Globulin 2.3, Albumin/Globulin Ratio 1.3 02/23/23 08:15: Blood Type O Positive, Antibody Screen Negative 02/23/23 08:46: SARS-CoV-2 (PCR) Not detected, Influenza A Untype (PCR) Not detected, Influenza Type B (PCR) Not detected 02/23/23 11:14: Troponin I < 0.01 02/23/23 14:30: Troponin I 0.01 02/23/23 15:24: Stool Occult Blood Positive A 02/24/23 05:54: WBC 8.8, RBC 2.61 L, Hgb 8.6 L, Hct 25.2 L, MCV 96.4 H, MCH 32.9 H, MCHC 34.1, RDW 14.9, Plt Count 214, MPV 8.6, Neut % (Auto) 65.6, Lymph % (Auto) 25.8, [place] % (Auto) 6.2, Eos % (Auto) 1.9, Baso % (Auto) 0.5, Neut # (Auto) 5.8, Lymph # (Auto) 2.3, [place] # (Auto) 0.6, Eos # (Auto) 0.2, Baso # (Auto) 0.0 02/24/23 05:54: Sodium 138, Potassium 3.8, Chloride 108 H, Carbon Dioxide 26, Anion Gap 7.8, BUN 18 D, Creatinine 0.90, Estimated Creat Clear 113, Estimated GFR 85, Est GFR ( Amer) 102, Glucose 96 D, Calcium 7.9 L I & O for Last 24 hours: Intake & Output 02/21/23 02/22/23 02/23/23 02/24/23 11:59 11:59 11:59 11:59 Intake Total 480 / 480 Output Total 0 / 0 500 / 500 Balance 0 / 0 -20 / -20 Weight 244 lb 11.2 oz 238 lb 3 oz Progress Note: A&P Assessment and plan (1) Acute GI bleeding: Status: Acute Assessment and plan: I will obtain a small bowel follow-through today. If this is unremarkable and his hemoglobin remained stable he may be able to be discharged for planned outpatient small bowel evaluation. (2) Syncope: Status: Acute (3) Hypertension: Status: Acute (4) Hypothyroidism: Status: Acute
--- NOTE | 2023-02-24 08:45 | PC.NURSE ---
Pt's brought in his home meds but pharmacy was unable to use them due to being in bottles.
--- NOTE | 2023-02-24 16:35 | PC.NURSE ---
Addendum entered by Chinyere Rojas RN 02/25/23 09:34: Patient was checked on frequently after episode by myself and TAO Conklin. His remained at bedside the rest of the shift. Addendum entered by Chinyere Rojas RN 02/24/23 16:46: 0929: Original Note: WC notified me that pt's rang out and stated that her was on the floor and had had a syncopal episode while returning from the bathroom. Ace Bradshaw RN, Stella Dior RN and myself went into the room. Patient was lying on the floor parallel to his bed. He was pale and diaphoretic. I placed a pillow under his head for comfort. He denied any pain on assessment, he only stated that he was dizzy. He and both denied that he hit his head or any other part of his body on the way down. His said she lowered him to the ground slowly. Stella Dior RN and myself pulled him to a sitting position and held it for approx 2 mins, then assisted him to standing position and lowered him onto his bed. Orthostatics were obtained (documented in intervention) and Dr Sharp and Dr Borden notified. He and were both instructed to ring out for assistance, both verbalized understanding.
[2023-02-24 16:36] LABS: Hematocrit 36.1 % (42.0-52.0)
[2023-02-24 16:49] LABS: Hemoglobin 12.1 g/dL (14.1-18.0)
[2023-02-25] VITALS: BP 152/88; PULSE 84; PULSE 90; RESP 18; TEMP 36.7; O2SAT 95
[2023-02-25 04:00] VITALS: BP 157/84; PULSE 80; PULSE 85; RESP 18; TEMP 36.8; O2SAT 98; BMI 36.5
--- NOTE | 2023-02-25 05:48 | PC.NURSE ---
Pt has had no complaints this shift. Denies abdominal pain, N/V. No BM this shift. Pt ambulated once to BR with one assist and tolerated well, denied dizziness/weakness. NSR on tele.
--- NOTE | 2023-02-25 07:49 | EXP.SURG.PN ---
Subjective Narrative: Patient is without complaints. No additional bleeding for about 36 hours clinically. However, he did have a syncopal episode yesterday afternoon which he attributes to getting out of the hot shower. Hemoglobin/hematocrit yesterday afternoon was elevated but likely inaccurate due to blood draw method. Upper GI small bowel follow-through revealed some esophageal reflux and prominent duodenal folds which would be consistent with upper endoscopy findings. Small bowel follow-through unremarkable. Exam Data for Last 24 hours Vital signs and Labs for Last 24 Hours: Temp Pulse Resp BP Pulse Ox 98.2 F 85 18 157/84 H 98 02/25/23 04:00 02/25/23 04:00 02/25/23 04:00 02/25/23 04:00 02/25/23 04:00 Laboratory Results - last 24 hr 02/24/23 16:10: Hgb 12.1 L D, Hct 36.1 L I & O for Last 24 hours: Intake & Output 02/22/23 02/23/23 02/24/23 02/25/23 11:59 11:59 11:59 11:59 Intake Total 480 / 480 240 / 240 Output Total 0 / 0 500 / 500 300 / 300 Balance 0 / 0 -20 / -20 -60 / -60 Weight 244 lb 11.2 oz 238 lb 3 oz 241 lb 1 oz Progress Note: A&P Assessment and plan (1) Acute GI bleeding: Status: Acute Assessment and plan: Check hemoglobin/hematocrit today. If stable may be able to be discharged home for outpatient small bowel evaluation. I did make him n.p.o. for potential need for additional testing if hemoglobin significantly clinically diminished. (2) Syncope: Status: Acute (3) Hypertension: Status: Acute (4) Hypothyroidism: Status: Acute
[2023-02-25 08:00] VITALS: BP 159/84; PULSE 80; PULSE 81; RESP 17; TEMP 36.7; O2SAT 94
[2023-02-25 08:24] LABS: Basophils % 0.5 % (0.1-2.0); Eosinophils # 0.4 K/mm3 (0.0-0.4)
--- NOTE | 2023-02-25 08:27 | XR_ITS ---
FINAL REPORT CLINICAL HISTORY: Rt anterior rib pain post fall 2 days ago FINDINGS: RIGHT RIB SERIES 3 views of the right ribs show irregularity of the right 8th, 9th, and 10th lateral ribs consistent with fractures of uncertain age, favor chronic. There is no pneumothorax or pleural fluid collection. IMPRESSION: Age indeterminate fractures of the 8th, 9th, and 10th lateral ribs, favor chronic. No pneumothorax. Reviewed, Interpreted and Dictated by Onur Desai III, MD Transcribed by Virginia Adair Authenticated and [facility]
--- NOTE | 2023-02-25 08:32 | EXP.ACUTE.PN ---
Subjective *Date: 02/25/23 *Time: 09:00 Interval history: Patient states he is feeling better this morning other than some pain in his right side. He states he did have a previous fall and hit the toilet and his is concerned that he may have some rib fractures and wants an x-ray. He has been seen by Dr. Borden and had an unremarkable small bowel follow-through. He denies any other pain this morning and slept well. He wants to go home. Medical Exam Vital signs and Labs for Last 24 Hours: Vital Signs Temp Pulse Pulse Resp BP BP BP 02/25/23 08:00 80 02/25/23 08:00 98.0 F 81 17 02/25/23 04:00 80 02/25/23 04:00 98.2 F 85 18 02/25/23 00:00 90 02/24/23 20:00 90 02/25/23 00:00 98.1 F 84 18 02/24/23 20:00 98.2 F 91 H 18 02/24/23 16:00 90 02/24/23 15:23 97.8 F 67 18 02/24/23 12:00 90 02/24/23 09:47 148/86 H 135/83 117/52 L 02/24/23 15:28 98.4 F 85 18 02/24/23 11:10 98.4 F 86 18 BP Pulse Ox 02/25/23 08:00 02/25/23 08:00 159/84 H 94 L 02/25/23 04:00 02/25/23 04:00 157/84 H 98 02/25/23 00:00 02/24/23 20:00 02/25/23 00:00 152/88 H 95 02/24/23 20:00 141/91 H 95 02/24/23 16:00 02/24/23 15:23 137/82 95 02/24/23 12:00 02/24/23 09:47 02/24/23 15:28 154/87 H 98 02/24/23 11:10 155/66 H 92 L Intake and Output 02/24/23 02/25/23 02/25/23 19:59 03:59 11:59 Intake Total 240 / 240 Output Total 0 / 300 300 / 300 Balance 240 / -60 -300 / -60 Intake: Intake, Oral Amount 240 / 240 Output: Output, Urine Amount 0 / 300 300 / 300 Other: Number of Unmeasured Voids 1 Weight 241 lb 1 oz Patient Weight 02/25/23 11:59 Weight 241 lb 1 oz Laboratory Results - last 24 hr 02/24/23 16:10: Hgb 12.1 L D, Hct 36.1 L I & O for Labs for Last 24 Hours: Intake & Output 02/22/23 02/23/23 02/24/23 02/25/23 11:59 11:59 11:59 11:59 Intake Total 480 / 480 240 / 240 Output Total 0 / 0 500 / 500 300 / 300 Balance 0 / 0 -20 / -20 -60 / -60 Weight 244 lb 11.2 oz 238 lb 3 oz 241 lb 1 oz Constitutional: Present no acute distress Comment:: Sitting up in the bed and appears comfortable Respiratory: Present CTA bilaterally Comment:: There is tenderness to palpation along the right middle rib area Cardiac: Present Reg Rate and Rhythm GI: Present soft and normal bowel sounds; Absent distention, tenderness or guarding Extremities: Absent edema or calf tenderness Neuro: Present alert and awake Assessment and Plan *Assessment and plan (1) Acute GI bleeding: Status: Acute Category: Medical Code(s): K92.2 - Gastrointestinal hemorrhage, unspecified (2) Syncope: Status: Acute Category: Medical Code(s): R55 - Syncope and collapse (3) Hypertension: Status: Acute Category: Medical Code(s): I10 - Essential (primary) hypertension (4) Hypothyroidism: Status: Acute Category: Medical Code(s): E03.9 - Hypothyroidism, unspecified (5) Rib pain on right side: Status: Acute Category: Medical Code(s): R07.81 - Pleurodynia (6) Anemia: Status: Acute Category: Medical Code(s): D64.9 - Anemia, unspecified Plan Patient's H&H did improve yesterday. He has been seen by Dr. Borden today and has had blood drawn. Awaiting H&H today before discharge. We will also get an x-ray of the right ribs Dr. Sharp entry - Saw patient, doubt H/H from yesterday afternoon is accurate, He is likely still anemic and will need capsule endoscopy as an outpatient.
[2023-02-25 08:33] LABS: Basophils # 0.1 K/mm3 (0-0.2); Hematocrit 24.6 % (42.0-52.0); Lymphocytes # 2.7 K/mm3 (0.7-4.5); Lymphocytes % 30.4 % (10-50); Mean Corpuscular HGB Conc 34.7 g/dL (31.8-35.4); Mean Corpuscular Hemoglobin 33.2 pg (27.0-31.2); Mean Corpuscular Volume 95.6 fl (80-94); Mean Platelet Volume 8.8 fl (7.4-10.4); Monocytes # 0.7 K/mm3 (0.1-1.0); Monocytes % 7.7 % (1.7-9.3); Neutrophils # 5.1 K/mm3 (1.8-7.8); Neutrophils % 57.4 % (37.0-80.0); Platelet Count 218 K/mm3 (142-424); Red Blood Count 2.57 M/mm3 (4.60-6.20); Red Cell Distribution Width 15.3 % (11.5-17.5); White Blood Count 8.9 K/mm3 (4.8-10.8)
[2023-02-25 08:35] LABS: Hemoglobin 8.6 g/dL (14.1-18.0)
[2023-02-25 11:38] VITALS: BP 157/82; PULSE 59; RESP 18; TEMP 36.8; O2SAT 95
[2023-02-25 12:00] VITALS: PULSE 80
--- NOTE | 2023-02-25 13:25 | HMH.PHAINT1 ---
Pharmacy Intervention Comments: Counseled patient on one new medication to START at discharge (Ferrous sulfate). Patient expressed medication's indication, dose, route, frequency, and potential side effects.
--- NOTE | 2023-03-03 08:48 | EXP.DC.SUM ---
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 I had performed colonoscopy on him in 2015 and he had a couple of tubular adenomas. Follow-up colonoscopy in October 2019 revealed a single tubular adenoma and several hyperplastic polyps as well as some pandiverticulosis. He was seen in the emergency department on 02/21/2023 with complaints of passage of several tarry black stools along with a reported syncopal episode. At that time he was found to have a BUN of 26 with a creatinine of 0.9. Hemoglobin of 13.6. CT scan of the abdomen pelvis at that time with IV contrast revealed no acute findings with sigmoid diverticulosis without diverticulitis. Patient was discharged to follow-up as an outpatient with surgery. He presents back to the emergency department this morning via EMS with complaints of rectal bleeding . He had some blood loss described as black stool with a bit of fresher looking blood and had a syncopal episode. Hemoglobin is 9.3 with hematocrit of 27.6%. His BUN is 27 with a creatinine of 1.0 Hospital Course Hospital Course Hospital Course: The patient was admitted for surgical consult and his H&H was monitored. His home medications were held. He was seen in consultation by Dr. Borden who wanted to proceed with an EGD as soon as possible. The EGD was performed on 02/23/2023 and there was no clear etiology of the patient's blood loss. There was moderate diffuse gastropathy and nonerosive duodenitis. Dr. Borden wanted to obtain a CT angiogram to assess for possible small bowel bleeding. The CT angiogram showed no CT evidence of acute GI hemorrhage and there was less than 50% stenosis of the proximal celiac and SMA. There was mild less than 50% stenosis of the right renal artery. Dr. Borden wanted to get a small bowel follow-through and felt the patient could resume his levothyroxine and PPI. The patient did have a syncopal episode after getting out of a hot shower. He had no additional bleeding for 36 hours. His upper GI revealed some esophageal reflux and prominent duodenal folds, but was otherwise relatively unremarkable. Dr. Borden felt he could be discharged home and would need further small bowel evaluation on an outpatient basis. The patient was complaining of some right-sided pain as he had had a fall and previously hit a toilet. His was concerned with rib fractures. He had a rib x-ray which did show possible fractures. His hemoglobin remained stable at 8.6 and he was stable to be discharged home. He will need a capsule endoscopy on an outpatient basis. Exam Data for Last 24 hours Vital signs and Labs for Last 24 Hours: Temp Pulse Resp BP Pulse Ox 98.2 F 80 18 157/82 H 95 02/25/23 11:38 02/25/23 12:00 02/25/23 11:38 02/25/23 11:38 02/25/23 11:38 Narrative: Constitutional Constitutional: no acute distress Comments: Lying on stretcher in the emergency room.? Appears comfortable. *Routine HEENT Exam Head: Present normocephalic and atraumatic Eye: Present PERRL; Absent conjunctival icterus, scleral injection or conjunctivae pink ENT: Present mucous membranes moist and oropharynx clear *Routine Neck Exam Neck: Present supple and full ROM; Absent lymphadenopathy, thyromegaly or tenderness *Routine Respiratory Exam Respiratory: Present CTA bilaterally (Anteriorly and posteriorly) *Routine Cardiovascular Exam Cardiovascular: Present RRR (Monitor showing sinus rhythm in the 70s) *Routine Abdominal Exam Abdominal: Present soft; Absent normoactive bowel sounds (Hyperactive), tenderness, distended, guarding or organomegaly *Routine Rectal Exam Rectal:: deferred *Routine Genitalia Exam Genitalia:: deferred *Routine Extremities Exam Extremities: Present full ROM; Absent edema or calf tenderness *Routine Neurological Exam Neurological: Present alert and
== END 2023-02-25 14:25 | disposition home or self-care (01) ==
LOC: ER 08:49 → 2ND 08:53
PROVIDERS: Surgery; Admitting Provider Family Medicine; Emergency Provider Emergency Medicine; PCP Family Medicine; Visit Provider Family Medicine
PROC: 0DJ08ZZ Inspection of Upper Intestinal Tract, Via Natural or Artificial Opening Endoscopic (ICD-10-PCS; CPT 43235; principal; 2023-02-23 12:00)
DX: K92.2 Gastrointestinal hemorrhage, unspecified (principal); R55 Syncope and collapse; I10 Essential (primary) hypertension; E03.9 Hypothyroidism, unspecified; D64.9 Anemia, unspecified; R07.81 Pleurodynia; Z79.899 Other long term (current) drug therapy; Z20.822 Contact with and (suspected) exposure to COVID-19
CPT/HCPCS: 43235; G0378; 36415; 71100; 74174; 74246; 74248; 80048; 80053; 82272; 84484; 85014; 85018; 85025; 86850; 93005; 99285; C9803; G0328; Q9967; U0003; U0005

== ENCOUNTER 2025-07-20 18:47 | Emergency (ER) | payer MEDICARE, SELFPAY ==
[2025-07-20 18:52] VITALS: BP 181/95; PULSE 81; RESP 16; TEMP 36.8; O2SAT 97; BMI 36.0
--- OUTSIDE RECORDS SUMMARY | 2025-07-20 18:59 | XMS_ITS ---
Author Organization Unknown Problems Date Problem Result OnSetDate Icd10 SnomedCode Severity Cu stom 03/05/2025 00:00:00 BMI 34.0-34.9,adult Z68.34 [id number]
--- NOTE | 2025-07-20 19:13 | XR_ITS ---
PROCEDURE INFORMATION: Exam: XR Left Foot Exam date and time: 07/20/2025 7:16 PM Age: 69 years old Clinical indication: Swelling, leg or foot TECHNIQUE: Imaging protocol: Radiologic exam of the left foot. Views: 3 or more views. COMPARISON: CR XR ANKLE LT MIN 3V 07/20/2025 7:16 PM FINDINGS: Bones/joints: There is an acute comminuted fracture of the central and anterior left calcaneus with mild depression of the hindfoot. No other acute fracture of the left foot is appreciated. There is mild hallux valgus deformity at the 1st metatarsal phalangeal joint. There is a small plantar calcaneal spur. Soft tissues: Moderate soft tissue swelling of the left ankle and proximal foot. There are small vessel calcifications noted within the left foot. IMPRESSION: Acute comminuted fracture of the central and anterior left calcaneus with depression of the hindfoot and associated soft tissue swelling.
--- NOTE | 2025-07-20 19:13 | XR_ITS ---
PROCEDURE INFORMATION: Exam: XR Left Ankle Exam date and time: 07/20/2025 7:16 PM Age: 69 years old Clinical indication: Edema; Location not specified TECHNIQUE: Imaging protocol: Radiologic exam of the left ankle. Views: 3 or more views. COMPARISON: CR XR FOOT LT MIN 3V 07/20/2025 7:16 PM FINDINGS: Bones/joints: Normal alignment at the level of the ankle. No fracture of the distal tibia or fibula is appreciated. There is a comminuted fracture of the mid and anterior left calcaneus. Soft tissues: There is moderate soft tissue swelling of the left ankle that is most prominent laterally. Vasculature: There is mild atherosclerotic calcification seen within the lower left calf. IMPRESSION: Acute comminuted fracture left calcaneus. No fracture distal left tibia or fibula appreciated. Moderate soft tissue swelling ankle.
--- NOTE | 2025-07-20 19:15 | ED_ITS ---
<Statement entered by Brayan Alexis MD - 07/21/25 03:01> I was consulted by the BEATRICE, and we discussed the complexity of the problems being addressed. I approve the treatment and management plan for this patient's care in the emergency department, thus performing a substantive portion of the medical decision making. Brayan Alexis MD Discharge Plan Disposition Patient Disposition: Xfer Other Prescriptions Prescriptions: No Action amlodipine 5 mg tablet 5 mg PO DAILY levothyroxine 75 mcg capsule 75 mcg PO DAILY omeprazole 40 mg capsule,delayed release(DR/EC) 40 mg PO DAILY multivitamin Tablet 1 tab PO DAILY ferrous sulfate 325 mg (65 mg iron) tablet 325 mg PO BID Qty: 60 0RF Referrals Follow up/Referrals: Provider,Enrique, [Primary Care Provider, Medical] - See instructions Clinical Impressions Clinical Impression: Left calcaneal fracture Print Language Print Language: Algerian Discharge ED Provider: Brayan Alexis General Adult HPI General Chief complaint: Fall Stated complaint: FALL Time Seen by Provider: 07/20/25 19:10 Mode of Arrival: EMS Source of Information: Patient Description of Symptoms (Recalled from ER Triage Doc. by RN): Patient states that he fell down about 2 rungs of a ladder this morning and injured left ankle about 0815. Patient states he has been having pain since he fell. History of Present Illness HPI narrative: 69-year-old male presents to the ED today after jumping off the ladder and injuring his left ankle and foot. He has significant swelling and bruising of his left ankle and foot. He has no other injuries. Related Data Home Medications ?Medication ?Instructions ?Recorded ?Confirmed amlodipine 5 mg tablet 5 mg PO DAILY High blood pre ssure 01/20/19 02/23/23 levothyroxine 75 mcg capsule 75 mcg PO DAILY Thyroid 0 01/20/19 02/23/23 omeprazole 40 mg capsule,delayed 40 mg PO DAILY Acid r eflux 01/20/19 02/23/23 release multivitamin 1 tab PO DAILY Supplement 02/23/23 Previous Rx's ?Medication ?Instructions ?Recorded ferrous sulfate 325 mg (65 mg 325 mg PO BID #60 tabs 0 02/25/23 iron) tablet Allergies Allergy/AdvReac Type Severity Reaction Status Date / Time No Known Allergies Allergy Verified 07/20/25 18:57 [facility] Disclaimer: The information contained in this section may have been updated after the patient was seen, as this information can be updated by other users. Medical History (Updated 07/20/25 @ 22:00 by Parul Vasquez (ED), [employer]) Upper GI bleed Tinnitus GERD (gastroesophageal reflux disease) Abnormal colonoscopy Colon polyps Hypothyroidism Hypertension Family History Other Cancer Coronary artery disease Hypertension Social History (Updated 02/23/23 @ 10:57 by Mary Walton, RN) Smoking Status: Never smoker alcohol intake: current alcohol intake frequency: a few times a week substance use type: denies use current occupational status: employed and retired Travel in the last 8 weeks?: Inside the [place] household members: significant other housing: house current occupation: machinest current occupational exposures/hazards: No caffeine: Yes Have you lived/traveled outside [place] in past 30 days?: No Contact w/someone who lives/traveled outside [place] past 30 days?: No Exposure to someone with infectious disease in past 14 days?: No Do you have a fever (greater than 100.4 F or 38 C)?: No Have you tested positive for COVID-19?: No Exposed to someone with COVID-19 in past 14 days?: No Do you have a sore throat?: No Do you have a cough?: No Do you have any weakness?: No Do you have any diarrhea?: No Are you experiencing any unusual bleeding?: No Do you have any muscle aches/pain?: No Do you have any abdominal pain?: No Are you experiencing loss of taste or smell?: No Other Medical History Have you received the Flu Vaccine for this season: No Have you received the Pneumonia Vaccine: No ROS Obtained: Yes Systems reviewed as appropriate & no additional complaints except as documented Constitutional Constitutional: Reports as per HPI Physical Exam General General appearance: alert and in no apparent distress Head Head exam: atraumatic and normocephalic Eye Eye exam: Present PERRL and EOMI ENT ENT exam: Present normal oropharynx and mucous membranes moist Neck Neck exam: Present full ROM and trachea midline Respiratory Respiratory exam: Present normal lung sounds bilaterally Cardiovascular Cardiovascular exam: Present regular rate, normal rhythm, normal heart sounds, +S1 and +S2 Abdominal Exam Abdominal exam: Present soft and normal bowel sounds Extremities Exam Extremities exam: Present tenderness and normal capillary refill Neurological Exam Neurological exam: Present alert and oriented X3 Skin Skin exam: Present warm and dry Medical Decision Making Medical Records Screening: Per USPSTF and CDC recommendations, given the prevalence of disease in our region, it is our hospital?s policy to screen for HIV and viral Hepatitis for all patients aged 18 and over and those with ongoing risk factors. [place] Inquiry Pt receiving controlled substance: No [place] was queried for this patient: No Vital Signs: 07/20/25 18:52 Temperature 98.3 F Temperature Source Oral Pulse Rate [Right Brachial] 81 Respiratory Rate 16 Blood Pressure [Right Arm] 181/95 H Blood Pressure Mean [Right Arm] 123 Blood Pressure Source [Right Arm] Automatic Cuff Blood Pressure Position [Right Arm] Sitting 02 Sat by Pulse Oximetry 97 Oxygen Delivery Method Room Air Orders (Tests/Meds): ED MEDICATIONS Discontinued Medications Generic Name Dose Route Start Last Admin Trade Name Freq PRN Reason Stop Dose Admin Hydrocodone Bitart/Acetaminophen 2 tab 07/20/25 19:15 07/20/25 19:33 Hydrocodone/Apap 5/325 Mg Tablet PO 07/20/25 19:16 2 tab ONCE ONE Administration Morphine Sulfate 4 mg 07/20/25 21:44 07/20/25 21:54 Morphine 4mg/Ml Syringe IV 07/20/25 21:45 4 mg ONCE ONE Administration Ondansetron HCl 4 mg 07/20/25 21:44 07/20/25 21:55 Ondansetron 4mg/2ml Vial IV 07/20/25 21:45 4 mg ONCE ONE Administration ORDERS Category Date Time Status Ankle XR - Left minimum 3 Views [XR ankle LT min 3V] Exams 07/20/25 19:13 Completed Stat Foot XR left minimum 3 views [XR foot LT min 3V] Stat Exams 07/20/25 19:13 Completed Medical Decision Narrative: patient is a 69-year-old male presenting to the emergency department for evaluation of left ankle and foot swelling. Patient is hemodynamically stable and nontoxic-appearing upon arrival, afebrile. Differential diagnosis includes ankle and foot fracture versus sprain or strain. Workup will be conducted with hematologic labs, specific imaging, provocative tests. I discussed patient's calcaneus fracture with Dr. Saucedo. He told me to call [facility] and discussed case with them. He is concerned about compartment syndrome. Patient does have swelling and pain. I called and talked to who accepted patient in transfer to [facility]. Patient agreeable to transfer to . Patient complaining of more pain, gave patient pain medication. Also asked for a walking boot and crutches so patient can use the bathroom. Patient is to be nonweightbearing. Patient is safe for transfer to Critical Care Critical Care Time Critical Care Time: No
[2025-07-20] MEDS: HYDROCODONE/APAP 5/325 MG TABLET 2 TAB PO (19:33)
[2025-07-20 20:30] VITALS: BP 199/112; PULSE 81; O2SAT 95
[2025-07-20 21:00] VITALS: BP 186/108; PULSE 79; O2SAT 95
--- NOTE | 2025-07-20 21:13 | PC.NURSE ---
Contacted [facility] in regards to a consult for this patient they will call back
--- NOTE | 2025-07-20 21:15 | PC.NURSE ---
Called [facility] for possible pt transfer
[2025-07-20] MEDS: MORPHINE 4MG/ML SYRINGE 4 MG IV (21:54)
[2025-07-20] MEDS: ONDANSETRON 4MG/2ML VIAL 4 MG IV (21:55)
[2025-07-21 00:02] VITALS: BP 156/80; PULSE 82; RESP 16; TEMP 37; O2SAT 97
[2025-07-21] MEDS: MORPHINE 4MG/ML SYRINGE 4 MG IV (00:35)
[2025-07-21 00:37] VITALS: O2SAT 95
== END 2025-07-21 00:50 | disposition other institution (70) ==
PROVIDERS: Emergency Provider Student in an Organized Health Care Education/Training Program
DX: S92.012A Displaced fracture of body of left calcaneus, initial encounter for closed fracture (principal); R22.42 Localized swelling, mass and lump, left lower limb; M25.572 Pain in left ankle and joints of left foot; X50.0XXA Overexertion from strenuous movement or load, initial encounter
CPT/HCPCS: 73610; 73630; 96374; 99285; J2270; J2405